=== PATIENT | female | born 1960 | race Caucasian/White ===

== ENCOUNTER 2019-07-16 02:13 | Inpatient (IN) | payer BC ==
[2019-07-16] VITALS (13 sets, daily range): BP systolic 119–169; BP diastolic 58–83
[~2019-07-16] VITALS: Ht 154.9 cm; Wt 88.6 kg
[2019-07-16] MEDS ORDERED: ONDANSETRON PF 4 MG/2 ML VIAL. IVP PRN (02:30)
[2019-07-16] MEDS ORDERED: IV NORMAL SALINE 1000ML BAG 1,000 ML IV SCH ×2 (02:30→05:13)
--- NOTE | 2019-07-16 02:37 | NUR ---
called dr belle at [phone] to inform him of pt arrival and her condition, was hung up on before i could tell him her condition but he stated he would "look into it". attempted to call him again at [phone] and he did not answer.
--- NOTE | 2019-07-16 03:07 | PDOC2 ---
CONSULT Date of Consult Date of Consult DATE: 07/16/19 TIME: 02:59 Reason for Consult Reason for Consult: incarcerated ventral incisional hernia Referring Physician Referring Physician: Dr Garcia Identification/Chief Complaint Chief Complaint abdominal pain Source Source: Chart review, Patient History of Present Illness Reason for Visit: Ms Last is a 58 yo obese female with hx of intermittent abdominal pain. Last noc this occurred with increased intensity. She was seen in the [facility] ED where CT showed incarcerated transverse colon. Past Medical History Cardiovascular: HTN Pulmonary: No pertinent hx Psych: Anxiety Renal/: No pertinent hx Past Surgical History Past Surgical History: , Hysterectomy Family History Family History: No Significant Social History No ALCOHOL: none Drugs: None Current Medications Current Medications Current Medications Sodium Chloride 1,000 ml @ 100 mls/hr Q10H IV ; Start 07/16/19 at 02:30 Ondansetron HCl (Zofran) 4 mg PRN Q4HRS PRN IVP NAUSEA/VOMITING 1ST CHOICE; Start 07/16/19 at 02:30 Fentanyl Citrate (Fentanyl 2ml Vial) 50 mcg PRN Q3HRS PRN IVP SEVERE PAIN 7-10; Start 07/16/19 at 02:30 Piperacillin Sod/ Tazobactam Sod 3.375 gm/Sodium Chloride 50 ml @ 100 mls/hr 1X ONCE IV ; Start 07/16/19 at 03:30; Stop 07/16/19 at 03:59 Allergies Allergies: Coded Allergies: peanut (Verified Allergy, Severe, 07/16/19) Estrogens (Verified Allergy, Intermediate, 07/16/19) ROS Gastrointestinal: Yes Nausea, Yes Abdominal Pain Physical Exam General: Alert, No acute distress HEENT: Atraumatic Lungs: Normal air movement Heart: Regular rate Abdomen: Soft, Other (fullness just below the umbilicus that is not reducible) Extremities: No clubbing Skin: Other (warm, dry) Neuro: Normal speech Psych/Mental Status: Mental status NL Labs Labs labs from ED are reviewed WBC 5.8, 'lytes WNL Images Images CT abdomen/pelvis done in the [facility] ED is reviewed Assessment/Plan Assessment/Plan incarcerated ventral incisional hernia containing colon obesity] HPT recommend repair explained risks including but not limited to bleeding, infection, recurrence, possible bowel resection, possible stoma she understands and will proceed Thanks for consult LAURA RAINES MD Jul 16, 2019 03:07
[2019-07-16] MEDS ORDERED: PIPERACILLIN/TAZOBACTAM 3.375 GM in IV NORMAL SALINE 50ML 50 ML IV ONE (03:30)
[2019-07-16] MEDS ORDERED: IV RINGERS,LACTATED 1000ML 1,000 ML IV SCH (03:33)
[2019-07-16] MEDS ORDERED: ONDANSETRON PF 4 MG/2 ML VIAL. IV PRN (03:45)
[2019-07-16] MEDS ORDERED: fentaNYL PF VIAL 100 MCG/2 ML VIAL IV PRN ×2 (03:45)
[2019-07-16] MEDS ORDERED: MORPHINE SULFATE 2 MG/ML VIAL. IV PRN (03:45)
[2019-07-16] MEDS ORDERED: PROCHLORPERAZINE 10 MG/2 ML VIAL. IV PRN (03:45)
[2019-07-16] MEDS ORDERED: HYDROmorphone 2 MG/ML VIAL IV PRN ×2 (03:45→05:15)
[2019-07-16] MEDS ORDERED: BUPIVACAINE-EPI 0.5%-1:200000 MPF 30 ML VIAL. ONE (03:50)
[2019-07-16] MEDS ORDERED: SEVOFLURANE 31 TO 60 MINUTES. IH ONE (03:52)
[2019-07-16] MEDS ORDERED: PROPOFOL 20 ML IV ONE (03:52)
[2019-07-16] MEDS ORDERED: LIDOCAINE 2% PF 5 ML VIAL. ONE (03:52)
[2019-07-16] MEDS ORDERED: DEXAMETHASONE SOD PHOS 4 MG/ML VIAL ONE (03:52)
[2019-07-16] MEDS ORDERED: ONDANSETRON PF 4 MG/2 ML VIAL. ONE (03:52)
[2019-07-16] MEDS ORDERED: NEOSTIGMINE METHYLSULFATE 5 MG/5 ML SYRINGE. ONE (03:53)
[2019-07-16] MEDS ORDERED: GLYCOPYRROLATE 1 MG/5 ML VIAL. ONE (03:53)
[2019-07-16] MEDS ORDERED: ROCURONIUM 50 MG/5 ML VIAL. ONE (03:53)
[2019-07-16] MEDS ORDERED: SUCCINYLCHOLINE 200 MG/10 ML VIAL. ONE (03:53)
[2019-07-16] MEDS ORDERED: fentaNYL PF VIAL 100 MCG/2 ML VIAL ONE ×2 (03:54→05:21)
[2019-07-16 04:16] LABS: BASO # 0.1 x10^3/uL (0.0-0.2); BASO % 1 % (0-3); EOS # 0.2 x10^3/uL (0.0-0.7); EOS % 3 % (0-3); HEMATOCRIT 39.6 % (36.0-47.0); HEMOGLOBIN 12.9 g/dL (12.0-15.5); LYMPH # 1.6 x10^3/uL (1.0-4.8); LYMPH % 20 % (24-48); MEAN CORPUSCULAR HEMOGLOBIN 29 pg (25-35); MEAN CORPUSCULAR HGB CONC 33 g/dL (31-37); MEAN CORPUSCULAR VOLUME 87 fL (79-100); MONO # 0.6 x10^3/uL (0.0-1.1); MONO % 7 % (0-9); NEUT # 5.6 x10^3/uL (1.8-7.7); NEUT % 70 % (31-73); PLATELET COUNT 273 x10^3/uL (140-400); RED BLOOD COUNT 4.53 x10^6/uL (3.50-5.40); RED CELL DISTRIBUTION WIDTH 14.4 % (11.5-14.5); WHITE BLOOD COUNT 8.1 x10^3/uL (4.0-11.0)
[2019-07-16] MEDS ORDERED: MIDAZOLAM HCL/PF 2 MG/2 ML VIAL. ONE ×2 (04:19→06:10)
[2019-07-16] MEDS ORDERED: ceFAZolin SODIUM IV Push 1 GM VIAL. IVP ONE (04:25)
[2019-07-16 04:32] LABS: ALBUMIN 3.1 g/dL (3.4-5.0); ALBUMIN/GLOBULIN RATIO 1.1 (1.0-1.7); CALCIUM 8.4 mg/dL (8.5-10.1); CREATININE 0.8 mg/dL (0.6-1.0); GFR 73.2; POTASSIUM 3.9 mmol/L (3.5-5.1); TOTAL BILIRUBIN 0.3 mg/dL (0.2-1.0)
[2019-07-16] MEDS ORDERED: SEVOFLURANE 61 TO 120 MINUTES. IH ONE (04:47)
--- NOTE | 2019-07-16 04:52 | NUR ---
pt left for surgery at [id number]
[2019-07-16] MEDS ORDERED: NALOXONE 0.4 MG/ML VIAL. IV PRN (05:15)
[2019-07-16] MEDS ORDERED: 0.9 % SODIUM CHLORIDE 10 ML DISP.SYRIN. IV PRN (05:15)
[2019-07-16] MEDS ORDERED: oxyCODONE/APAP 5/325 1 TAB TABLET PO PRN ×2 (05:15)
--- NOTE | 2019-07-16 05:20 | PDOC ---
BRIEF OPERATIVE NOTE Date: Jul 16, 2019 Pre-Op Diagnosis incarcerated ventral incisional hernia Post-Op Diagnosis same Procedure Performed primary repair Surgeon Andry Furnace Charging Machine Operator Carmen OCONNOR Anesthesia Type: General Blood Loss 10cc IV Fluid 500cc Urine Output 300cc Specimens Obtained hernia sack Findings single defect containing omentum Complications none LAURA RAINES MD Jul 16, 2019 05:20
[2019-07-16] MEDS ORDERED: MORPHINE SULFATE 2 MG/ML VIAL. ONE (05:51)
--- NOTE | 2019-07-16 06:10 | OP ---
DATE OF SURGERY: 07/16/2019 PREOPERATIVE DIAGNOSIS: Incarcerated ventral incisional hernia. POSTOPERATIVE DIAGNOSIS: Incarcerated ventral incisional hernia. PROCEDURE: Primary repair. SURGEON: Maury Raines MD SCRAPER OPERATOR: ANASTASIA Sam ANESTHESIA: General endotracheal. BLOOD LOSS: 10 mL. INTRAVENOUS FLUIDS: 500 mL. URINE OUTPUT: 300 mL. INDICATIONS: The patient is a 58-year-old with a ventral incisional hernia containing colon by CT scan. She is brought for repair. OPERATIVE FINDINGS: Hernia sac-contained incarcerated omentum having reduced the bowel contents after induction. OPERATIVE REPORT: The patient brought to the operating suite, given general endotracheal anesthetic, and the abdomen prepped and draped in usual sterile fashion. Old low midline incisional scar was excised and dissection carried down to the anterior sheath. The large hernia sac was exposed circumferentially and carefully opened. Omental contents were freed and reduced into the abdomen. Digital sweep of the abdominal wall revealed no other areas of weakness. The defect was closed in transverse fashion with a running stitch of #1 looped PDS after a correct sponge count had been obtained. A second row of 0 Vicryl was placed to reinforce the repair. Good hemostasis was present. A 19-Slovak round Mitch drain left in the subcutaneous space for postoperative drainage, secured to the skin with a silk stitch. Second sponge count was correct. The skin was closed with a subcuticular 4-0 Monocryl. Steri-Strips and sterile dressing applied. The patient awakened from her anesthetic and taken to the recovery room in satisfactory condition. MAURY RAINES MD DR: FRANKLYN/ursula JOB#: [id number] / [id number] NELA Hammond MD
[2019-07-16] MEDS ORDERED: MIDAZOLAM HCL/PF 2 MG/2 ML VIAL. IV PRN (06:15)
[2019-07-16] MEDS: ONDANSETRON PF 4 MG/2 ML VIAL. IVP PRN (08:30)
[2019-07-16] MEDS: fentaNYL PF VIAL 100 MCG/2 ML VIAL IVP PRN (08:33)
[2019-07-16] MEDS: POTASSIUM CL 20MEQ-0.45% NACL 1,000 ML IV SCH ×2 (08:33→16:00)
[2019-07-16] MEDS: DOCUSATE SODIUM 100 MG CAPSULE. PO SCH ×2 (09:00→21:49)
--- NOTE | 2019-07-16 10:21 | NUR ---
SW following. Discussed with RN, pt from home alone. Pt had emergency surgery this morning at 0400. RN has not seen pt up yet. Pt has family and friends as supports. RN advised no SW needs at this time. SW will continue to follow.
[2019-07-16] MEDS ORDERED: LORazepam 0.5 MG TABLET PO PRN (11:00)
--- NOTE | 2019-07-16 11:39 | PDOC ---
SURGICAL PROGRESS NOTE Subjective improved, earlier panic attacks pain managed no n/v Vital Signs Vital Signs Date Time Temp Pulse Resp B/P (MAP) Pulse Ox O2 Delivery O2 Flow Rate FiO2 07/16/19 11:00 98.2 91 18 155/83 (107) 92 Room Air 98.2 07/16/19 08:33 4.0 I&O Intake and Output 07/16/19 07:00 Intake Total 850 ml Output Total 865 ml Balance -15 ml Intake Oral 0 ml IV Total 850 ml Output Urine Total 850 ml Drainage Total 5 ml Estimated Blood Loss 10 ml # Voids 1 General: Cooperative, No acute distress Abdomen: Soft Labs Laboratory Tests Test 07/16/19 03:00 07/16/19 03:50 Sodium Level 141 mmol/L (136-145) Potassium Level 3.9 mmol/L (3.5-5.1) Chloride Level 108 mmol/L (98-107) Carbon Dioxide Level 24 mmol/L (21-32) Anion Gap 9 (6-14) Blood Urea Nitrogen 14 mg/dL (7-20) Creatinine 0.8 mg/dL (0.6-1.0) Estimated GFR (Cockcroft-Gault) 73.2 BUN/Creatinine Ratio 18 (6-20) Glucose Level 115 mg/dL (70-99) Lactic Acid Level 0.8 mmol/L (0.4-2.0) Calcium Level 8.4 mg/dL (8.5-10.1) Total Bilirubin 0.3 mg/dL (0.2-1.0) Aspartate Amino Transf (AST/SGOT) 13 U/L (15-37) Alanine Aminotransferase (ALT/SGPT) 10 U/L (14-59) Alkaline Phosphatase 74 U/L (46-116) Total Protein 6.0 g/dL (6.4-8.2) Albumin 3.1 g/dL (3.4-5.0) Albumin/Globulin Ratio 1.1 (1.0-1.7) White Blood Count 8.1 x10^3/uL (4.0-11.0) Red Blood Count 4.53 x10^6/uL (3.50-5.40) Hemoglobin 12.9 g/dL (12.0-15.5) Hematocrit 39.6 % (36.0-47.0) Mean Corpuscular Volume 87 fL (79-100) Mean Corpuscular Hemoglobin 29 pg (25-35) Mean Corpuscular Hemoglobin Concent 33 g/dL (31-37) Red Cell Distribution Width 14.4 % (11.5-14.5) Platelet Count 273 x10^3/uL (140-400) Neutrophils (%) (Auto) 70 % (31-73) Lymphocytes (%) (Auto) 20 % (24-48) Monocytes (%) (Auto) 7 % (0-9) Eosinophils (%) (Auto) 3 % (0-3) Basophils (%) (Auto) 1 % (0-3) Neutrophils # (Auto) 5.6 x10^3/uL (1.8-7.7) Lymphocytes # (Auto) 1.6 x10^3/uL (1.0-4.8) Monocytes # (Auto) 0.6 x10^3/uL (0.0-1.1) Eosinophils # (Auto) 0.2 x10^3/uL (0.0-0.7) Basophils # (Auto) 0.1 x10^3/uL (0.0-0.2) Laboratory Tests Test 07/16/19 03:00 07/16/19 03:50 Sodium Level 141 mmol/L (136-145) Potassium Level 3.9 mmol/L (3.5-5.1) Chloride Level 108 mmol/L (98-107) Carbon Dioxide Level 24 mmol/L (21-32) Anion Gap 9 (6-14) Blood Urea Nitrogen 14 mg/dL (7-20) Creatinine 0.8 mg/dL (0.6-1.0) Estimated GFR (Cockcroft-Gault) 73.2 BUN/Creatinine Ratio 18 (6-20) Glucose Level 115 mg/dL (70-99) Lactic Acid Level 0.8 mmol/L (0.4-2.0) Calcium Level 8.4 mg/dL (8.5-10.1) Total Bilirubin 0.3 mg/dL (0.2-1.0) Aspartate Amino Transf (AST/SGOT) 13 U/L (15-37) Alanine Aminotransferase (ALT/SGPT) 10 U/L (14-59) Alkaline Phosphatase 74 U/L (46-116) Total Protein 6.0 g/dL (6.4-8.2) Albumin 3.1 g/dL (3.4-5.0) Albumin/Globulin Ratio 1.1 (1.0-1.7) White Blood Count 8.1 x10^3/uL (4.0-11.0) Red Blood Count 4.53 x10^6/uL (3.50-5.40) Hemoglobin 12.9 g/dL (12.0-15.5) Hematocrit 39.6 % (36.0-47.0) Mean Corpuscular Volume 87 fL (79-100) Mean Corpuscular Hemoglobin 29 pg (25-35) Mean Corpuscular Hemoglobin Concent 33 g/dL (31-37) Red Cell Distribution Width 14.4 % (11.5-14.5) Platelet Count 273 x10^3/uL (140-400) Neutrophils (%) (Auto) 70 % (31-73) Lymphocytes (%) (Auto) 20 % (24-48) Monocytes (%) (Auto) 7 % (0-9) Eosinophils (%) (Auto) 3 % (0-3) Basophils (%) (Auto) 1 % (0-3) Neutrophils # (Auto) 5.6 x10^3/uL (1.8-7.7) Lymphocytes # (Auto) 1.6 x10^3/uL (1.0-4.8) Monocytes # (Auto) 0.6 x10^3/uL (0.0-1.1) Eosinophils # (Auto) 0.2 x10^3/uL (0.0-0.7) Basophils # (Auto) 0.1 x10^3/uL (0.0-0.2) Problem List VIH await bowel function medical management for anxiety SKYLA SHARMA APRN Jul 16, 2019 11:39
--- NOTE | 2019-07-16 13:27 | HP ---
ADMIT DATE: 07/16/2019 HISTORY OF PRESENT ILLNESS: The patient is a 58-year-old female patient who presented to the Emergency Room of [facility] with complaint of abdominal pain and cramping that started yesterday. She indicates the pain is around the umbilical region. She rates the pain as 7/10. She does have some nausea, but no vomiting. She also indicated that she has had no episode of loose bowel movement. Denied any fever. Her pain is worse with movement and nothing has improved her pain. She was extensively investigated in the Emergency Room. Her lab work was unremarkable; however, CT scan of the abdomen and pelvis showed there are inflammatory changes that are seen about the herniated segment of the transverse colon without associated pneumatosis, ascites or free intraperitoneal gas. This can be correlated with examination for possible incarceration. No bowel obstruction, borderline hepatomegaly and a decision was made to transfer her to consult the surgical team for incarcerated ventral incisional hernia. PAST MEDICAL HISTORY: Significant for anxiety and hypertension. She did have esophagogastroduodenoscopy and dilatation of her esophagus before. ALLERGIES: SHE IS ALLERGIC TO ESTROGEN AND PEANUTS. MEDICATIONS: She is currently on following medications: She is on cetirizine 10 mg once a day, albuterol sulfate, ProAir 1 puff every 4-6 hours, lisinopril 20 mg once a day, citalopram hydrobromide 20 mg once a day, and Flonase 2 sprays to each nostril once a day. REVIEW OF SYSTEMS: As per history of present illness. FAMILY HISTORY: Positive for heart disease. SOCIAL HISTORY: She is and lives with her . She does not smoke, drink alcohol or use any recreational drugs. She is retired from the [employer] in [place]. Apparently, she has had also and hysterectomy. PHYSICAL EXAMINATION: GENERAL: On arrival to the Emergency Room, the patient looked well and was clearly in no apparent respiratory distress. No pallor, jaundice, cyanosis or thyromegaly. No jugular venous distention. No lower limb edema. VITAL SIGNS: Her heart rate was 72, blood pressure was 159/72, temperature was 98.4, respiratory rate was 16, and oxygen saturation was 98%. HEAD, EYES, EARS, NOSE AND THROAT: Showed normocephalic, atraumatic. NECK: Supple. HEART: Showed normal first and second heart sounds. No gallop or murmur. CHEST: Clear to auscultation. No crepitation or rhonchi. ABDOMEN: Distended with tenderness mostly around the umbilical area. NEUROLOGIC: She was awake, alert, responding appropriately. All cranial nerves intact. EXTREMITIES: She moves extremities without difficulty. She ambulates without assistance or assistive devices. LABORATORY DATA: Her lab work showed a white cell count 5800, hemoglobin 13, hematocrit 41, MCV was 88 and platelet count of 300,000. Her D-dimer was slightly elevated at 0.62. Her chemistry showed serum sodium of 142, potassium 4, chloride 106, bicarbonate 27, anion gap of 9, BUN 18, creatinine 0.9, estimated GFR was 64 mL per minute. Her glucose 116, calcium was 8.6. Total bilirubin, AST, ALT, alkaline phosphatase were normal. Total protein 6.7, albumin 3.5. TSH was normal at 0.771. Urinalysis was unremarkable and her influenza A and B were negative. ASSESSMENT AND PLAN: The patient was admitted to [facility]. We will obviously consult the surgical team. She was kept n.p.o., started on IV fluid, IV pain medication and antiemetic, and we will obviously repeat her lab work including lactic acid and decide the further management accordingly. NELA MCINTYRE MD DR: AIRAM/ursula JOB#: [id number] / [id number]
[2019-07-16] MEDS ORDERED: clonazePAM 0.5 MG TABLET PO PRN (15:45)
--- NOTE | 2019-07-16 16:08 | PDOC1 ---
History & Psych Evaluation Date of Admission: Date of Admission DATE: 07/16/19 TIME: 15:52 Identification: Identification She is a 58-year-old female with prior history of generalized anxiety disorder Chief Complaint: Chief Complaint Anxiety with panic attacks. History of Present Illness: HPI: She is a pleasant female with prior history of generalized anxiety disorder and panic attacks admitted with incarcerated hernia S/P surgical intervention, seen for initial psychiatric evaluation. Reportedly, she has been having panic attacks since morning. Since morning, she had 3 panic attacks. She is cooperative and interactive a phone conversation. States, she has history of generalized anxiety disorder with panic attacks started 20 years ago when she got her hysterectomy done. States, she gets nervous about several things in her life, mostly things in general, and in severe situations gets panic attack. Panic attack is with typical symptomatology including difficulty catching up her breath, extreme nervousness, fear, and psychosomatic symptoms. States, she has been prescribed citalopram 20 mg which is reportedly helpful. Prior to admission, states her anxiety was not fully under control and she was having subtle panic -like situations. However, she states that, her panic attacks are related to her current medical situation and being in the hospital. States, she wants to leave the hospital. Aside from that, she denies history of overt depression, suicidal or homicidal thoughts, history of psychosis, hallucinations, bipolar mood disorder, or excessive alcohol abuse or illicit substance use. No evidence of renaldo, hypomania, or psychosis. Past Psychiatric History: She denies past psychiatric history of psychiatric inpatient admission, suicidality, or rehabilitation. Past Medical History: For details please see medical chart. Family History: She denies family history of psychiatric illness, or suicidality in family. Social History: Social History: She lives by herself, and once, has 3 grownup children. She works at [employer]. Denies history of legal ramifications. Substance use history as mentioned above. Current Medications: Current Medications Current Medications Sodium Chloride 1,000 ml @ 100 mls/hr Q10H IV Last administered on 07/16/19at 03:08; Start 07/16/19 at 02:30; Stop 07/16/19 at 05:21; Status DC Ondansetron HCl (Zofran) 4 mg PRN Q4HRS PRN IVP NAUSEA/VOMITING 1ST CHOICE; Start 07/16/19 at 02:30; Stop 07/16/19 at 05:21; Status DC Fentanyl Citrate (Fentanyl 2ml Vial) 50 mcg PRN Q3HRS PRN IVP SEVERE PAIN 7-10 Last administered on 07/16/19at 08:33; Start 07/16/19 at 02:30 Piperacillin Sod/ Tazobactam Sod 3.375 gm/Sodium Chloride 50 ml @ 100 mls/hr 1X ONCE IV Last administered on 07/16/19at 04:35; Start 07/16/19 at 03:30; Stop 07/16/19 at 03:59; Status DC Ondansetron HCl (Zofran) 4 mg PRN Q6HRS PRN IV NAUSEA/VOMITING; Start 07/16/19 at 03:45; Stop 07/17/19 at 03:44 Fentanyl Citrate (Fentanyl 2ml Vial) 25 mcg PRN Q5MIN PRN IV MILD PAIN 1-3; Start 07/16/19 at 03:45; Stop 07/17/19 at 03:44 Fentanyl Citrate (Fentanyl 2ml Vial) 50 mcg PRN Q5MIN PRN IV MODERATE TO SEVERE PAIN; Start 07/16/19 at 03:45; Stop 07/17/19 at 03:44 Morphine Sulfate (Morphine Sulfate) 1 mg PRN Q10MIN PRN IV SEVERE PAIN 7-10; Start 07/16/19 at 03:45; Stop 07/17/19 at 03:44 Ringer's Solution 1,000 ml @ 30 mls/hr Q24H IV ; Start 07/16/19 at 03:33; Stop 07/16/19 at 15:32; Status DC Hydromorphone HCl (Dilaudid) 0.5 mg PRN Q10MIN PRN IV SEV PAIN, Second choice; Start 07/16/19 at 03:45; Stop 07/17/19 at 03:44 Prochlorperazine Edisylate (Compazine) 5 mg PACU PRN PRN IV NAUSEA, MRX1 Last administered on 07/16/19at 06:30; Start 07/16/19 at 03:45; Stop 07/17/19 at 03:44 Bupivacaine HCl/ Epinephrine Bitart (Sensorcain-Epi 0.5%-1:750561 Mpf) 30 ml STK-MED ONCE .ROUTE Last administered on 07/16/19at 04:38; Start 07/16/19 at 03:50; Stop 07/16/19 at 03:50; Status DC Ondansetron HCl (Zofran) 4 mg STK-MED ONCE .ROUTE ; Start 07/16/19 at 03:52; Stop 07/16/19 at 03:53; Status DC Propofol 20 ml @ As Directed STK-MED ONCE IV ; Start 07/16/19 at 03:52; Stop 07/16/19 at 03:53; Status DC Lidocaine HCl (Lidocaine Pf 2% Vial) 5 ml STK-MED ONCE .ROUTE ; Start 07/16/19 at 03:52; Stop 07/16/19 at 03:53; Status DC Dexamethasone Sodium Phosphate (Decadron) 4 mg STK-MED ONCE .ROUTE ; Start 07/16/19 at 03:52; Stop 07/16/19 at 03:53; Status DC Sevoflurane (Ultane) 30 ml STK-MED ONCE IH ; Start 07/16/19 at 03:52; Stop 07/16/19 at 03:53; Status DC Succinylcholine Chloride (Anectine) 200 mg STK-MED ONCE .ROUTE ; Start 07/16/19 at 03:53; Stop 07/16/19 at 03:53; Status DC Glycopyrrolate (Robinul) 1 mg STK-MED ONCE .ROUTE ; Start 07/16/19 at 03:53; Stop 07/16/19 at 03:53; Status DC Neostigmine Yancey (Neostigmine Methylsulfate) 5 mg STK-MED ONCE .ROUTE ; Start 07/16/19 at 03:53; Stop 07/16/19 at 03:53; Status DC Rocuronium Yancey (Zemuron) 50 mg STK-MED ONCE .ROUTE ; Start 07/16/19 at 03:53; Stop 07/16/19 at 03:54; Status DC Fentanyl Citrate (Fentanyl 2ml Vial) 100 mcg STK-MED ONCE .ROUTE ; Start 07/16/19 at 03:54; Stop 07/16/19 at 03:54; Status DC Midazolam HCl (Versed) 2 mg STK-MED ONCE .ROUTE ; Start 07/16/19 at 04:19; Stop 07/16/19 at 04:19; Status DC Cefazolin Sodium (Ancef) 1 gm STK-MED ONCE IVP ; Start 07/16/19 at 04:25; Stop 07/16/19 at 04:25; Status DC Sevoflurane (Ultane) 60 ml STK-MED ONCE IH ; Start 07/16/19 at 04:47; Stop 07/16/19 at 04:48; Status DC Enoxaparin Sodium (Lovenox 40mg Syringe) 40 mg Q24H SQ ; Start 07/16/19 at 21:00 Sodium Chloride (Normal Saline Flush) 3 ml QSHIFT PRN IV AFTER MEDS AND BLOOD DRAWS; Start 07/16/19 at 05:15 Potassium Chloride/Sodium Chloride 1,000 ml @ 100 mls/hr Q10H IV Last administered on 07/16/19at 08:33; Start 07/16/19 at 06:00 Oxycodone/ Acetaminophen (Percocet 5/325) 1 tab PRN Q4HRS PRN PO MILD PAIN, 1ST CHOICE; Start 07/16/19 at 05:15 Oxycodone/ Acetaminophen (Percocet 5/325) 2 tab PRN Q4HRS PRN PO MODERATE PAIN, SEVERE PAIN; Start 07/16/19 at 05:15 Naloxone HCl (Narcan) 0.4 mg PRN Q2MIN PRN IV SEE INSTRUCTIONS; Start 07/16/19 at 05:15 Sodium Chloride 1,000 ml @ 25 mls/hr Q24H IV ; Start 07/16/19 at 05:13; Stop 07/16/19 at 05:20; Status DC Hydromorphone HCl (Dilaudid) 1 mg PRN Q4HRS PRN IV SEVERE PAIN 7-10; Start 07/16/19 at 05:15 Docusate Sodium (Colace) 100 mg BID PO ; Start 07/16/19 at 09:00 Ondansetron HCl (Zofran) 4 mg PRN Q6HRS PRN IVP NAUESA, 1ST CHOICE Last administered on 07/16/19at 08:30; Start 07/16/19 at 05:15 Fentanyl Citrate (Fentanyl 2ml Vial) 100 mcg STK-MED ONCE .ROUTE ; Start 07/16/19 at 05:21; Stop 07/16/19 at 05:21; Status DC Morphine Sulfate (Morphine Sulfate) 2 mg STK-MED ONCE .ROUTE ; Start 07/16/19 at 05:51; Stop 07/16/19 at 05:51; Status DC Midazolam HCl (Versed) 2 mg STK-MED ONCE .ROUTE ; Start 07/16/19 at 06:10; Stop 07/16/19 at 06:10; Status DC Midazolam HCl (Versed) 1 mg PRN Q30MIN PRN IV ANXIETY Last administered on 07/16/19at 06:15; Start 07/16/19 at 06:15; Stop 07/16/19 at 18:15 Lorazepam (Ativan) 0.5 mg PRN Q6HRS PRN PO ANXIETY / AGITATION Last administered on 07/16/19at 12:17; Start 07/16/19 at 11:00 Allergies: Allergies: Coded Allergies: peanut (Verified Allergy, Severe, 07/16/19) Estrogens (Verified Allergy, Intermediate, 07/16/19) Mental Status Examination: Mental Status Examination She is a pleasant female, appears her stated age, dressed in hospital gown, fairly nourished and fairly groomed. She is cooperative and interactive. She is fully alert and oriented. Speech is with regular rate and rhythm, normal tone and volume. Thought process is linear, coherent, and goal-directed. Denies suicidal or homicidal thoughts intent or plan. Denies auditory or visual hallucinations. No abnormal delusions reported. Mood is slightly anxious, affect is euthymic. Insight is good, judgment is good, and attention span is fair. Memory is intact. ROS: Medical review of system is positive for nausea and slight abdominal pain. Psychiatric review of system is positive for anxiety and panic attacks. Physical Exam: Refer to Physician's note. STEREOTYPER HELPER: No focal deficit MSK: No EPS, TDK, or abnormal involuntary movements Vitals: Vitals Vital Signs Date Time Temp Pulse Resp B/P (MAP) Pulse Ox O2 Delivery O2 Flow Rate FiO2 07/16/19 15:00 97.9 95 18 146/76 (99) 94 Room Air 97.9 07/16/19 08:33 4.0 Labs: Labs Laboratory Tests Test 07/16/19 03:00 07/16/19 03:50 Sodium Level 141 mmol/L (136-145) Potassium Level 3.9 mmol/L (3.5-5.1) Chloride Level 108 mmol/L (98-107) Carbon Dioxide Level 24 mmol/L (21-32) Anion Gap 9 (6-14) Blood Urea Nitrogen 14 mg/dL (7-20) Creatinine 0.8 mg/dL (0.6-1.0) Estimated GFR (Cockcroft-Gault) 73.2 BUN/Creatinine Ratio 18 (6-20) Glucose Level 115 mg/dL (70-99) Lactic Acid Level 0.8 mmol/L (0.4-2.0) Calcium Level 8.4 mg/dL (8.5-10.1) Total Bilirubin 0.3 mg/dL (0.2-1.0) Aspartate Amino Transf (AST/SGOT) 13 U/L (15-37) Alanine Aminotransferase (ALT/SGPT) 10 U/L (14-59) Alkaline Phosphatase 74 U/L (46-116) Total Protein 6.0 g/dL (6.4-8.2) Albumin 3.1 g/dL (3.4-5.0) Albumin/Globulin Ratio 1.1 (1.0-1.7) White Blood Count 8.1 x10^3/uL (4.0-11.0) Red Blood Count 4.53 x10^6/uL (3.50-5.40) Hemoglobin 12.9 g/dL (12.0-15.5) Hematocrit 39.6 % (36.0-47.0) Mean Corpuscular Volume 87 fL (79-100) Mean Corpuscular Hemoglobin 29 pg (25-35) Mean Corpuscular Hemoglobin Concent 33 g/dL (31-37) Red Cell Distribution Width 14.4 % (11.5-14.5) Platelet Count 273 x10^3/uL (140-400) Neutrophils (%) (Auto) 70 % (31-73) Lymphocytes (%) (Auto) 20 % (24-48) Monocytes (%) (Auto) 7 % (0-9) Eosinophils (%) (Auto) 3 % (0-3) Basophils (%) (Auto) 1 % (0-3) Neutrophils # (Auto) 5.6 x10^3/uL (1.8-7.7) Lymphocytes # (Auto) 1.6 x10^3/uL (1.0-4.8) Monocytes # (Auto) 0.6 x10^3/uL (0.0-1.1) Eosinophils # (Auto) 0.2 x10^3/uL (0.0-0.7) Basophils # (Auto) 0.1 x10^3/uL (0.0-0.2) Laboratory Tests Test 07/16/19 03:00 07/16/19 03:50 Sodium Level 141 mmol/L (136-145) Potassium Level 3.9 mmol/L (3.5-5.1) Chloride Level 108 mmol/L (98-107) Carbon Dioxide Level 24 mmol/L (21-32) Anion Gap 9 (6-14) Blood Urea Nitrogen 14 mg/dL (7-20) Creatinine 0.8 mg/dL (0.6-1.0) Estimated GFR (Cockcroft-Gault) 73.2 BUN/Creatinine Ratio 18 (6-20) Glucose Level 115 mg/dL (70-99) Lactic Acid Level 0.8 mmol/L (0.4-2.0) Calcium Level 8.4 mg/dL (8.5-10.1) Total Bilirubin 0.3 mg/dL (0.2-1.0) Aspartate Amino Transf (AST/SGOT) 13 U/L (15-37) Alanine Aminotransferase (ALT/SGPT) 10 U/L (14-59) Alkaline Phosphatase 74 U/L (46-116) Total Protein 6.0 g/dL (6.4-8.2) Albumin 3.1 g/dL (3.4-5.0) Albumin/Globulin Ratio 1.1 (1.0-1.7) White Blood Count 8.1 x10^3/uL (4.0-11.0) Red Blood Count 4.53 x10^6/uL (3.50-5.40) Hemoglobin 12.9 g/dL (12.0-15.5) Hematocrit 39.6 % (36.0-47.0) Mean Corpuscular Volume 87 fL (79-100) Mean Corpuscular Hemoglobin 29 pg (25-35) Mean Corpuscular Hemoglobin Concent 33 g/dL (31-37) Red Cell Distribution Width 14.4 % (11.5-14.5) Platelet Count 273 x10^3/uL (140-400) Neutrophils (%) (Auto) 70 % (31-73) Lymphocytes (%) (Auto) 20 % (24-48) Monocytes (%) (Auto) 7 % (0-9) Eosinophils (%) (Auto) 3 % (0-3) Basophils (%) (Auto) 1 % (0-3) Neutrophils # (Auto) 5.6 x10^3/uL (1.8-7.7) Lymphocytes # (Auto) 1.6 x10^3/uL (1.0-4.8) Monocytes # (Auto) 0.6 x10^3/uL (0.0-1.1) Eosinophils # (Auto) 0.2 x10^3/uL (0.0-0.7) Basophils # (Auto) 0.1 x10^3/uL (0.0-0.2) Impressions: Impressons: DSM-V diagnoses: 1generalized anxiety disorder 2panic attacks 3incarcerated abdominal hernia S/P surgical intervention. Assessment/Plan: Assessment/Plan She is a pleasant female struggling with panic attacks in context of prior generalized anxiety disorder with panic attacks. Likely precipitation of her anxiety and panic attacks is related to her current hospitalization and surgical intervention. She is in agreement to start Klonopin temporarily to abort panic attacks and continue her citalopram (outpatient medication). She is also educated to use deep breathing exercises to abort panic attacks. Plan: Restart citalopram 20 mg daily for anxiety and panic attacks. Klonopin 0.5 mg twice a day scheduled for sustained stability to avoid panic attacks. DC Ativan when necessary. Psychoeducation provided. Supportive psychotherapy provided. Risks, benefits, alternatives are discussed. She is in agreement with plan and expresses understanding. Adverse drug reactions including but not limited to insomnia, excessive sedation, weight gain/loss, suicidality, sexual dysfunction, are discussed. REBEL SAHNI MD Jul 16, 2019 16:08
[2019-07-16] MEDS: ENOXAPARIN 40 MG/0.4 ML SYRINGE. SQ SCH (21:50)
[2019-07-17] MEDS: POTASSIUM CL 20MEQ-0.45% NACL 1,000 ML IV SCH ×3 (02:51→20:46)
[2019-07-17 03:00] VITALS: BP 127/73
[2019-07-17 07:41] VITALS: BP 141/67
[2019-07-17] MEDS: CITALOPRAM 20 MG TABLET. PO SCH (07:56)
[2019-07-17] MEDS: DOCUSATE SODIUM 100 MG CAPSULE. PO SCH ×2 (07:56→20:41)
[2019-07-17] MEDS: fentaNYL PF VIAL 100 MCG/2 ML VIAL IVP PRN (07:57)
[2019-07-17] MEDS: ONDANSETRON PF 4 MG/2 ML VIAL. IVP PRN ×2 (08:24→14:42)
--- NOTE | 2019-07-17 09:23 | NUR ---
SW following. Discussed with RN. RN advised no SW needs and anticipates possible discharge home today with self care.
--- NOTE | 2019-07-17 09:29 | PN ---
DATE: 07/17/2019 SUBJECTIVE: The patient is resting, slightly propped up in bed, in no apparent respiratory distress. She apparently continued to be nauseous and vomited once this morning. Denied any abdominal pain, had not had any bowel movement or passed flatus according to her. PHYSICAL EXAMINATION: GENERAL: On examining her, she looked well and was clearly in no apparent respiratory distress. No pallor, jaundice, cyanosis or thyromegaly. No jugular venous distention. No lower limb edema. VITAL SIGNS: Her heart rate was 86, blood pressure was 141/67, temperature was 98, respiratory rate was 18 and oxygen saturation was 91% on room air. ABDOMEN: Soft, nontender. No tenderness. No guarding or rigidity. No organomegaly. Bowel sounds are audible. Her intake over the last 24 hours was 850, output was 865. LABORATORY DATA: Her lab work showed her all within acceptable range. Her white cell count was 8100, hemoglobin 13, hematocrit 39, MCV 87, and platelet count 273,000. ASSESSMENT: Incarcerated ventral incisional hernia, status post primary repair. The patient continued to be somewhat nauseous and vomited once this morning. Other medical problems include hypertension and anxiety. PLAN: Continue with current medication for her anxiety and also DVT prophylaxis. Continue with IV fluid. Once she is tolerating her regular diet, she can be discharged home. NELA MCINTYRE MD DR: AIRAM/ursula JOB#: [id number] / [id number]
[2019-07-17 11:10] VITALS: BP 112/40
--- NOTE | 2019-07-17 12:20 | PN ---
PROGRESS NOTES Subjective Subjective She is a pleasant female with generalized anxiety disorder who was seen initially yesterday 07/16/2023 for psychiatric evaluation. Today, she is seen for routine follow-up. She was restarted on Klonopin 0.5 mg twice a day for panic attacks and breakthrough anxiety. Additionally, her outpatient citalopram 20 mg was started. With respect to anxiety and mood, she endorses substantial improvement. Anxiety is reported as 12/10 10 is worse. States, she slept really good last night. Complaining of nausea and threw up in the morning. States she is limited but anxious due to her nausea. Aside from that she denies overt depression, hallucinations, mood instability, violent intent, or nightmares. No evidence of psychosis or renaldo. Tolerating medications, denies adverse drug reaction. Objective Objective Vital Signs Date Time Temp Pulse Resp B/P (MAP) Pulse Ox O2 Delivery O2 Flow Rate FiO2 07/17/19 11:10 98.1 67 18 112/40 (64) 94 Room Air 98.1 07/16/19 08:33 4.0 Intake and Output 07/17/19 07:00 Intake Total 1480 ml Output Total 2100 ml Balance -620 ml Intake Oral 1480 ml Output Urine Total 2100 ml # Voids 3 Physical Exam Physical Exam Mental status examination: She is a pleasant female, appears her stated age, dressed in hospital gown, fairly nourished and fairly groomed. She is cooperative and interactive. She is fully alert and oriented. Speech is with regular rate and rhythm, normal tone and volume. Thought process is linear, coherent, and goal-directed. Denies suicidal or homicidal thoughts intent or plan. Denies auditory or visual hallucinations. No abnormal delusions reported. Mood is "pretty good", affect is euthymic. Insight is good, judgment is good, and attention span is fair. Memory is intact. Physical examination: BORDER MEASURER: No focal neurological deficit. Musculoskeletal: No EPS or abnormal involuntary movements. Diagnosis DIAGNOSIS 1generalized anxiety disorder 2panic attacks 3incarcerated abdominal hernia S/P surgical intervention Assessment Assessment She is a pleasant female with generalized anxiety disorder and panic attacks who was restarted on Klonopin 0.5 mg twice a day for sustained control of panic attacks, citalopram 20 mg which was her outpatient antianxiety medication. With respect to anxiety, she notes substantial improvement in anxiety. Presently, would recommend to continue medications as prescribed. Plan Plan of Care 1 reporting nausea, Klonopin helps in nausea. 2 continue Klonopin 0.5 mg twice a day for breakthrough anxiety and panic attacks. 3continue citalopram 20 mg daily for generalized anxiety disorder. 4psychoeducation provided. 5supportive psychotherapy provided. 6risk, benefits, alternatives of the treatment are discussed. She is in agreement with plan and expresses understanding. 7in case of discharge, continue citalopram 20 mg daily, a week supply of Klonopin 0.5 mg once daily for as needed for breakthrough anxiety. Please feel free to contact Dr. Carrera at [phone] with any concern. Comment Review of Relevant I have reviewed the following items jeff (where applicable) has been applied. Labs Laboratory Tests Test 07/16/19 03:00 07/16/19 03:50 Sodium Level 141 mmol/L (136-145) Potassium Level 3.9 mmol/L (3.5-5.1) Chloride Level 108 mmol/L (98-107) Carbon Dioxide Level 24 mmol/L (21-32) Anion Gap 9 (6-14) Blood Urea Nitrogen 14 mg/dL (7-20) Creatinine 0.8 mg/dL (0.6-1.0) Estimated GFR (Cockcroft-Gault) 73.2 BUN/Creatinine Ratio 18 (6-20) Glucose Level 115 mg/dL (70-99) Lactic Acid Level 0.8 mmol/L (0.4-2.0) Calcium Level 8.4 mg/dL (8.5-10.1) Total Bilirubin 0.3 mg/dL (0.2-1.0) Aspartate Amino Transf (AST/SGOT) 13 U/L (15-37) Alanine Aminotransferase (ALT/SGPT) 10 U/L (14-59) Alkaline Phosphatase 74 U/L (46-116) Total Protein 6.0 g/dL (6.4-8.2) Albumin 3.1 g/dL (3.4-5.0) Albumin/Globulin Ratio 1.1 (1.0-1.7) White Blood Count 8.1 x10^3/uL (4.0-11.0) Red Blood Count 4.53 x10^6/uL (3.50-5.40) Hemoglobin 12.9 g/dL (12.0-15.5) Hematocrit 39.6 % (36.0-47.0) Mean Corpuscular Volume 87 fL (79-100) Mean Corpuscular Hemoglobin 29 pg (25-35) Mean Corpuscular Hemoglobin Concent 33 g/dL (31-37) Red Cell Distribution Width 14.4 % (11.5-14.5) Platelet Count 273 x10^3/uL (140-400) Neutrophils (%) (Auto) 70 % (31-73) Lymphocytes (%) (Auto) 20 % (24-48) Monocytes (%) (Auto) 7 % (0-9) Eosinophils (%) (Auto) 3 % (0-3) Basophils (%) (Auto) 1 % (0-3) Neutrophils # (Auto) 5.6 x10^3/uL (1.8-7.7) Lymphocytes # (Auto) 1.6 x10^3/uL (1.0-4.8) Monocytes # (Auto) 0.6 x10^3/uL (0.0-1.1) Eosinophils # (Auto) 0.2 x10^3/uL (0.0-0.7) Basophils # (Auto) 0.1 x10^3/uL (0.0-0.2) Medications Current Medications Sodium Chloride 1,000 ml @ 100 mls/hr Q10H IV Last administered on 07/16/19at 03:08; Start 07/16/19 at 02:30; Stop 07/16/19 at 05:21; Status DC Ondansetron HCl (Zofran) 4 mg PRN Q4HRS PRN IVP NAUSEA/VOMITING 1ST CHOICE; Start 07/16/19 at 02:30; Stop 07/16/19 at 05:21; Status DC Fentanyl Citrate (Fentanyl 2ml Vial) 50 mcg PRN Q3HRS PRN IVP SEVERE PAIN 7-10 Last administered on 07/17/19at 07:57; Start 07/16/19 at 02:30 Piperacillin Sod/ Tazobactam Sod 3.375 gm/Sodium Chloride 50 ml @ 100 mls/hr 1X ONCE IV Last administered on 07/16/19at 04:35; Start 07/16/19 at 03:30; Stop 07/16/19 at 03:59; Status DC Ondansetron HCl (Zofran) 4 mg PRN Q6HRS PRN IV NAUSEA/VOMITING Last administered on 07/17/19at 03:14; Start 07/16/19 at 03:45; Stop 07/17/19 at 03:44; Status DC Fentanyl Citrate (Fentanyl 2ml Vial) 25 mcg PRN Q5MIN PRN IV MILD PAIN 1-3; Start 07/16/19 at 03:45; Stop 07/17/19 at 03:44; Status DC Fentanyl Citrate (Fentanyl 2ml Vial) 50 mcg PRN Q5MIN PRN IV MODERATE TO SEVERE PAIN; Start 07/16/19 at 03:45; Stop 07/17/19 at 03:44; Status DC Morphine Sulfate (Morphine Sulfate) 1 mg PRN Q10MIN PRN IV SEVERE PAIN 7-10; Start 07/16/19 at 03:45; Stop 07/17/19 at 03:44; Status DC Ringer's Solution 1,000 ml @ 30 mls/hr Q24H IV ; Start 07/16/19 at 03:33; Stop 07/16/19 at 15:32; Status DC Hydromorphone HCl (Dilaudid) 0.5 mg PRN Q10MIN PRN IV SEV PAIN, Second choice; Start 07/16/19 at 03:45; Stop 07/17/19 at 03:44; Status DC Prochlorperazine Edisylate (Compazine) 5 mg PACU PRN PRN IV NAUSEA, MRX1 Last administered on 07/16/19at 06:30; Start 07/16/19 at 03:45; Stop 07/17/19 at 03:44; Status DC Bupivacaine HCl/ Epinephrine Bitart (Sensorcain-Epi 0.5%-1:[id number] Mpf) 30 ml STK-MED ONCE .ROUTE Last administered on 07/16/19at 04:38; Start 07/16/19 at 03:50; Stop 07/16/19 at 03:50; Status DC Ondansetron HCl (Zofran) 4 mg STK-MED ONCE .ROUTE ; Start 07/16/19 at 03:52; Stop 07/16/19 at 03:53; Status DC Propofol 20 ml @ As Directed STK-MED ONCE IV ; Start 07/16/19 at 03:52; Stop 07/16/19 at 03:53; Status DC Lidocaine HCl (Lidocaine Pf 2% Vial) 5 ml STK-MED ONCE .ROUTE ; Start 07/16/19 at 03:52; Stop 07/16/19 at 03:53; Status DC Dexamethasone Sodium Phosphate (Decadron) 4 mg STK-MED ONCE .ROUTE ; Start 07/16/19 at 03:52; Stop 07/16/19 at 03:53; Status DC Sevoflurane (Ultane) 30 ml STK-MED ONCE IH ; Start 07/16/19 at 03:52; Stop 07/16/19 at 03:53; Status DC Succinylcholine Chloride (Anectine) 200 mg STK-MED ONCE .ROUTE ; Start 07/16/19 at 03:53; Stop 07/16/19 at 03:53; Status DC Glycopyrrolate (Robinul) 1 mg STK-MED ONCE .ROUTE ; Start 07/16/19 at 03:53; Stop 07/16/19 at 03:53; Status DC Neostigmine Mackay (Neostigmine Methylsulfate) 5 mg STK-MED ONCE .ROUTE ; Start 07/16/19 at 03:53; Stop 07/16/19 at 03:53; Status DC Rocuronium Mackay (Zemuron) 50 mg STK-MED ONCE .ROUTE ; Start 07/16/19 at 03:53; Stop 07/16/19 at 03:54; Status DC Fentanyl Citrate (Fentanyl 2ml Vial) 100 mcg STK-MED ONCE .ROUTE ; Start 07/16/19 at 03:54; Stop 07/16/19 at 03:54; Status DC Midazolam HCl (Versed) 2 mg STK-MED ONCE .ROUTE ; Start 07/16/19 at 04:19; Stop 07/16/19 at 04:19; Status DC Cefazolin Sodium (Ancef) 1 gm STK-MED ONCE IVP ; Start 07/16/19 at 04:25; Stop 07/16/19 at 04:25; Status DC Sevoflurane (Ultane) 60 ml STK-MED ONCE IH ; Start 07/16/19 at 04:47; Stop 06/19 at 04:48; Status DC Enoxaparin Sodium (Lovenox 40mg Syringe) 40 mg Q24H SQ Last administered on 07/16/19at 21:50; Start 07/16/19 at 21:00 Sodium Chloride (Normal Saline Flush) 3 ml QSHIFT PRN IV AFTER MEDS AND BLOOD DRAWS; Start 07/16/19 at 05:15 Potassium Chloride/Sodium Chloride 1,000 ml @ 100 mls/hr Q10H IV Last administered on 07/17/19at 02:51; Start 07/16/19 at 06:00 Oxycodone/ Acetaminophen (Percocet 5/325) 1 tab PRN Q4HRS PRN PO MILD PAIN, 1ST CHOICE; Start 07/16/19 at 05:15 Oxycodone/ Acetaminophen (Percocet 5/325) 2 tab PRN Q4HRS PRN PO MODERATE PAIN, SEVERE PAIN; Start 07/16/19 at 05:15 Naloxone HCl (Narcan) 0.4 mg PRN Q2MIN PRN IV SEE INSTRUCTIONS; Start 07/16/19 at 05:15 Sodium Chloride 1,000 ml @ 25 mls/hr Q24H IV ; Start 07/16/19 at 05:13; Stop 07/16/19 at 05:20; Status DC Hydromorphone HCl (Dilaudid) 1 mg PRN Q4HRS PRN IV SEVERE PAIN 7-10 Last administered on 07/17/19at 02:47; Start 07/16/19 at 05:15 Docusate Sodium (Colace) 100 mg BID PO Last administered on 07/17/19at 07:56; Start 07/16/19 at 09:00 Ondansetron HCl (Zofran) 4 mg PRN Q6HRS PRN IVP NAUESA, 1ST CHOICE Last administered on 07/17/19at 08:24; Start 07/16/19 at 05:15 Fentanyl Citrate (Fentanyl 2ml Vial) 100 mcg STK-MED ONCE .ROUTE ; Start 07/16/19 at 05:21; Stop 07/16/19 at 05:21; Status DC Morphine Sulfate (Morphine Sulfate) 2 mg STK-MED ONCE .ROUTE ; Start 07/16/19 at 05:51; Stop 07/16/19 at 05:51; Status DC Midazolam HCl (Versed) 2 mg STK-MED ONCE .ROUTE ; Start 07/16/19 at 06:10; Stop 07/16/19 at 06:10; Status DC Midazolam HCl (Versed) 1 mg PRN Q30MIN PRN IV ANXIETY Last administered on 07/16/19at 06:15; Start 07/16/19 at 06:15; Stop 07/16/19 at 18:15; Status DC Lorazepam (Ativan) 0.5 mg PRN Q6HRS PRN PO ANXIETY / AGITATION Last administered on 07/16/19at 12:17; Start 07/16/19 at 11:00; Stop 07/16/19 at 15:53; Status DC Citalopram Hydrobromide (CeleXA) 20 mg DAILY PO Last administered on 07/17/19at 07:56; Start 07/17/19 at 09:00 Clonazepam (KlonoPIN) 0.5 mg PRN Q6HRS PRN PO ANXIETY / AGITATION Last administered on 07/16/19at 17:41; Start 07/16/19 at 15:45 Vitals/I & O Vital Sign - Last 24 Hours 07/16/19 07/16/19 07/16/19 07/17/19 15:00 19:00 23:00 02:47 Temp 97.9 98.3 98.0 97.9 98.3 98.0 Pulse 95 94 81 Resp 18 18 18 B/P (MAP) 146/76 (99) 154/83 (106) 154/68 (96) Pulse Ox 94 93 94 O2 Delivery Room Air Room Air Room Air Room Air 07/17/19 07/17/19 07/17/19 07/17/19 03:00 07:41 07:57 08:00 Temp 98.0 98.0 98.0 98.0 Pulse 89 86 Resp 18 18 B/P (MAP) 127/73 (91) 141/67 (91) Pulse Ox 92 91 O2 Delivery Room Air Room Air Room Air Room Air 07/17/19 07/17/19 08:27 11:10 Temp 98.1 98.1 Pulse 67 Resp 18 B/P (MAP) 112/40 (64) Pulse Ox 94 O2 Delivery Room Air Room Air Intake and Output 07/16/19 07/16/19 07/17/19 15:00 23:00 07:00 Intake Total 480 ml 1000 ml Output Total 2100 ml Balance 480 ml -1100 ml REBEL CARRERA MD Jul 17, 2019 12:20
--- NOTE | 2019-07-17 13:08 | PDOC ---
SURGICAL PROGRESS NOTE Subjective vomiting no flatus Vital Signs Vital Signs Date Time Temp Pulse Resp B/P (MAP) Pulse Ox O2 Delivery O2 Flow Rate FiO2 07/17/19 11:10 98.1 67 18 112/40 (64) 94 Room Air 98.1 07/16/19 08:33 4.0 I&O Intake and Output 07/17/19 07:00 Intake Total 1480 ml Output Total 2100 ml Balance -620 ml Intake Oral 1480 ml Output Urine Total 2100 ml # Voids 3 General: Alert, Oriented X3, Cooperative Abdomen: Soft, Other (dressing dry, soft) Labs Laboratory Tests Test 07/16/19 03:00 07/16/19 03:50 Sodium Level 141 mmol/L (136-145) Potassium Level 3.9 mmol/L (3.5-5.1) Chloride Level 108 mmol/L (98-107) Carbon Dioxide Level 24 mmol/L (21-32) Anion Gap 9 (6-14) Blood Urea Nitrogen 14 mg/dL (7-20) Creatinine 0.8 mg/dL (0.6-1.0) Estimated GFR (Cockcroft-Gault) 73.2 BUN/Creatinine Ratio 18 (6-20) Glucose Level 115 mg/dL (70-99) Lactic Acid Level 0.8 mmol/L (0.4-2.0) Calcium Level 8.4 mg/dL (8.5-10.1) Total Bilirubin 0.3 mg/dL (0.2-1.0) Aspartate Amino Transf (AST/SGOT) 13 U/L (15-37) Alanine Aminotransferase (ALT/SGPT) 10 U/L (14-59) Alkaline Phosphatase 74 U/L (46-116) Total Protein 6.0 g/dL (6.4-8.2) Albumin 3.1 g/dL (3.4-5.0) Albumin/Globulin Ratio 1.1 (1.0-1.7) White Blood Count 8.1 x10^3/uL (4.0-11.0) Red Blood Count 4.53 x10^6/uL (3.50-5.40) Hemoglobin 12.9 g/dL (12.0-15.5) Hematocrit 39.6 % (36.0-47.0) Mean Corpuscular Volume 87 fL (79-100) Mean Corpuscular Hemoglobin 29 pg (25-35) Mean Corpuscular Hemoglobin Concent 33 g/dL (31-37) Red Cell Distribution Width 14.4 % (11.5-14.5) Platelet Count 273 x10^3/uL (140-400) Neutrophils (%) (Auto) 70 % (31-73) Lymphocytes (%) (Auto) 20 % (24-48) Monocytes (%) (Auto) 7 % (0-9) Eosinophils (%) (Auto) 3 % (0-3) Basophils (%) (Auto) 1 % (0-3) Neutrophils # (Auto) 5.6 x10^3/uL (1.8-7.7) Lymphocytes # (Auto) 1.6 x10^3/uL (1.0-4.8) Monocytes # (Auto) 0.6 x10^3/uL (0.0-1.1) Eosinophils # (Auto) 0.2 x10^3/uL (0.0-0.7) Basophils # (Auto) 0.1 x10^3/uL (0.0-0.2) Assessment/Plan [facility] NPO, await improved bowel function SKYLA SHARMA MUSIC PROMOTER Jul 17, 2019 13:08
--- NOTE | 2019-07-17 15:07 | PATHOLOGY ---
[facility] Accession Number: [id number] . 01 Material submitted: . hernia - HERNIA SAC . 01 Clinical history: . Incarcerated ventral hernia . 02 Diagnosis: Segment of focal mesothelial-lined fibromembranous and fibroadipose tissue, ventral hernia repair: - Hernia sac showing congestion and focal mild chronic inflammation. 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 02 Electronically signed: . Sergio Garcia MD, Pathologist NPI- [id number] . 01 Gross description: . The specimen is received in formalin, labeled "Last, Kyara, hernia sac" and consists of a segment of membranous pink-peter yellow lobulated tissue measuring 10.4 x 6.8 x 2.5 cm. Sectioning reveals no gross lesions and customer relations representative tissue is submitted in A1. (SDY; 07/16/2019) SYU/SYU 07/16/2019 1547 Local . 02 Pathologist provided ICD-10: K43.9 . 02 CPT . 652512 Specimen Comment: A courtesy copy of this report has been sent to [phone] Specimen Comment: [phone], Specimen Comment: Report sent to ,DR MCINTYRE / DR IBANEZ Specimen Comment: A duplicate report has been generated due to demographic updates. Performed at: 01 [facility] [address], [place] [id number] MD Law Li MD Phone: [phone] Performed at: 02 [facility] [address], [place] [id number] MD Sergio Garcia MD Phone: [phone]
[2019-07-17 15:24] VITALS: BP 162/74
[2019-07-17 19:00] VITALS: BP 159/82
[2019-07-17] MEDS: ENOXAPARIN 40 MG/0.4 ML SYRINGE. SQ SCH (20:41)
[2019-07-17 23:00] VITALS: BP 129/79
[2019-07-18] VITALS (7 sets, daily range): BP systolic 147–180; BP diastolic 69–92
[2019-07-18] MEDS: CITALOPRAM 20 MG TABLET. PO SCH (06:59)
[2019-07-18] MEDS: DOCUSATE SODIUM 100 MG CAPSULE. PO SCH ×2 (07:00→20:37)
[2019-07-18] MEDS: POTASSIUM CL 20MEQ-0.45% NACL 1,000 ML IV SCH ×2 (08:21→16:40)
--- NOTE | 2019-07-18 09:46 | PN ---
DATE: 07/18/2019 SUBJECTIVE: The patient is resting, slightly propped up in bed, in no apparent distress, awake and alert. On questioning her, she denied any further episodes of nausea or vomiting. She has mild tenderness in the right upper quadrant with right-sided ROSSANA drain. She passed flatus, but no bowel movement. PHYSICAL EXAMINATION: GENERAL: When I examined her, she looked well. No pallor, jaundice, cyanosis, or thyromegaly. No jugular venous distention. No limb edema. VITAL SIGNS: Her heart rate was 82, blood pressure 158/89, temperature was 98.0, respiratory rate was 18, and oxygen saturation was 92%. HEAD, EYES, EARS, NOSE, AND THROAT: Normocephalic and atraumatic. NECK: Supple. CARDIAC: Normal first and second heart sounds. No gallop, rub, or murmur. CHEST: Clear to auscultation. No crepitation or rhonchi. ABDOMEN: Distended, soft, and nontender. There is no guarding or rigidity. No organomegaly. All hernial orifices intact. Bowel sounds normal. NEUROLOGIC: She is grossly intact. LABORATORY DATA: Her intake was 1480 and output was 2100. She has no lab work done this morning. Her most recent lab work showed a BUN of 14 and creatinine 0.8. Her white cell count was 8100, hemoglobin 13, hematocrit 39, MCV 87, and platelet count 273,000. ASSESSMENT: Incarcerated ventral incisional hernia, status post primary repair. The patient has had no further episodes of nausea or vomiting. She did pass gas according to her; however, she has no bowel movement. Other medical problems include hypertension and anxiety. PLAN: To continue with pain management. Continue with IV fluid and await evaluation by the surgical team to advance her diet. NELA MCINTYRE MD DR: AIRAM/ursula JOB#: [id number] / [id number]
[2019-07-18 11:25] LABS: HEMATOCRIT 42.2 % (36.0-47.0); HEMOGLOBIN 13.8 g/dL (12.0-15.5); RED BLOOD COUNT 4.87 x10^6/uL (3.50-5.40); RED CELL DISTRIBUTION WIDTH 14.2 % (11.5-14.5); WHITE BLOOD COUNT 7.3 x10^3/uL (4.0-11.0)
[2019-07-18 11:53] LABS: ALBUMIN 3.4 g/dL (3.4-5.0); CALCIUM 9.1 mg/dL (8.5-10.1); CREATININE 0.9 mg/dL (0.6-1.0); GFR 63.7; TOTAL BILIRUBIN 0.7 mg/dL (0.2-1.0); TOTAL PROTEIN 6.9 g/dL (6.4-8.2)
--- NOTE | 2019-07-18 12:53 | PDOC ---
SURGICAL PROGRESS NOTE Subjective feels much better no further emesis + flatus Vital Signs Vital Signs Date Time Temp Pulse Resp B/P (MAP) Pulse Ox O2 Delivery O2 Flow Rate FiO2 07/18/19 11:00 98.2 80 18 161/92 (115) 94 Room Air 98.2 I&O Intake and Output 07/18/19 07:00 Intake Total 1200 ml Output Total 780 ml Balance 420 ml Intake Oral 400 ml IV Total 800 ml Output Urine Total 750 ml Drainage Total 30 ml # Voids 5 General: Alert, Cooperative Abdomen: Soft, Other (drain serosang, incision dressing dry) Labs Laboratory Tests Test 07/18/19 11:00 White Blood Count 7.3 x10^3/uL (4.0-11.0) Red Blood Count 4.87 x10^6/uL (3.50-5.40) Hemoglobin 13.8 g/dL (12.0-15.5) Hematocrit 42.2 % (36.0-47.0) Mean Corpuscular Volume 87 fL (79-100) Mean Corpuscular Hemoglobin 28 pg (25-35) Mean Corpuscular Hemoglobin Concent 33 g/dL (31-37) Red Cell Distribution Width 14.2 % (11.5-14.5) Platelet Count 304 x10^3/uL (140-400) Sodium Level 142 mmol/L (136-145) Potassium Level 4.0 mmol/L (3.5-5.1) Chloride Level 105 mmol/L (98-107) Carbon Dioxide Level 24 mmol/L (21-32) Anion Gap 13 (6-14) Blood Urea Nitrogen 10 mg/dL (7-20) Creatinine 0.9 mg/dL (0.6-1.0) Estimated GFR (Cockcroft-Gault) 63.7 BUN/Creatinine Ratio 11 (6-20) Glucose Level 80 mg/dL (70-99) Calcium Level 9.1 mg/dL (8.5-10.1) Total Bilirubin 0.7 mg/dL (0.2-1.0) Aspartate Amino Transf (AST/SGOT) 32 U/L (15-37) Alanine Aminotransferase (ALT/SGPT) 25 U/L (14-59) Alkaline Phosphatase 82 U/L (46-116) Total Protein 6.9 g/dL (6.4-8.2) Albumin 3.4 g/dL (3.4-5.0) Albumin/Globulin Ratio 1.0 (1.0-1.7) Laboratory Tests Test 07/18/19 11:00 White Blood Count 7.3 x10^3/uL (4.0-11.0) Red Blood Count 4.87 x10^6/uL (3.50-5.40) Hemoglobin 13.8 g/dL (12.0-15.5) Hematocrit 42.2 % (36.0-47.0) Mean Corpuscular Volume 87 fL (79-100) Mean Corpuscular Hemoglobin 28 pg (25-35) Mean Corpuscular Hemoglobin Concent 33 g/dL (31-37) Red Cell Distribution Width 14.2 % (11.5-14.5) Platelet Count 304 x10^3/uL (140-400) Sodium Level 142 mmol/L (136-145) Potassium Level 4.0 mmol/L (3.5-5.1) Chloride Level 105 mmol/L (98-107) Carbon Dioxide Level 24 mmol/L (21-32) Anion Gap 13 (6-14) Blood Urea Nitrogen 10 mg/dL (7-20) Creatinine 0.9 mg/dL (0.6-1.0) Estimated GFR (Cockcroft-Gault) 63.7 BUN/Creatinine Ratio 11 (6-20) Glucose Level 80 mg/dL (70-99) Calcium Level 9.1 mg/dL (8.5-10.1) Total Bilirubin 0.7 mg/dL (0.2-1.0) Aspartate Amino Transf (AST/SGOT) 32 U/L (15-37) Alanine Aminotransferase (ALT/SGPT) 25 U/L (14-59) Alkaline Phosphatase 82 U/L (46-116) Total Protein 6.9 g/dL (6.4-8.2) Albumin 3.4 g/dL (3.4-5.0) Albumin/Globulin Ratio 1.0 (1.0-1.7) Problem List VIH start SKYLA Stanley APRN Jul 18, 2019 12:53
[2019-07-18] MEDS: LISINOPRIL 20 MG TABLET PO SCH (16:38)
[2019-07-18] MEDS: ENOXAPARIN 40 MG/0.4 ML SYRINGE. SQ SCH (20:37)
[2019-07-19] MEDS: POTASSIUM CL 20MEQ-0.45% NACL 1,000 ML IV SCH ×2 (02:39→11:31)
[2019-07-19 03:00] VITALS: BP 174/87
[2019-07-19 07:03] VITALS: BP 101/68
[2019-07-19] MEDS: ONDANSETRON PF 4 MG/2 ML VIAL. IVP PRN (07:06)
[2019-07-19] MEDS: DOCUSATE SODIUM 100 MG CAPSULE. PO SCH ×2 (07:53→20:44)
[2019-07-19] MEDS: CITALOPRAM 20 MG TABLET. PO SCH (07:53)
[2019-07-19] MEDS: LISINOPRIL 20 MG TABLET PO SCH (07:54)
--- NOTE | 2019-07-19 09:54 | PN ---
DATE: 07/19/2019 SUBJECTIVE: The patient is resting, slightly propped up in bed, in no apparent distress. She is awake, alert, stated that she has some pain last night for which she took pain medication and since then she has had no abdominal pain. She has no nausea, no vomiting. She tolerated her diet well. PHYSICAL EXAMINATION: GENERAL: When I examined her this morning, she looked well and was clearly in no apparent respiratory distress. No pallor, jaundice, cyanosis or thyromegaly. No jugular venous distention. No limb edema. VITAL SIGNS: Her heart rate was 113, blood pressure was 101/68, temperature was 98, respiratory rate was 20, and oxygen saturation was 94%. The rest of clinical exam is stable. LABORATORY DATA: As of yesterday, her white cell count is 7300, hemoglobin 14, hematocrit 42, MCV 87 and platelet count 304,000. Her chemistry showed a BUN of 10, creatinine 0.9. ASSESSMENT: 1. Incarcerated ventral incisional hernia, status post primary repair. The patient has no further episodes of nausea and vomiting. She did pass gas, according to her; however, so far she has no bowel movement. 2. Other medical problems include hypertension, anxiety. PLAN: To continue with current plan of management. If the patient tolerates her advanced diet, she can be discharged home to follow with her primary care physician and surgical team as an outpatient. NELA MCINTYRE MD DR: AIRAM/ursula JOB#: [id number] / [id number]
[2019-07-19 11:10] VITALS: BP 175/87
--- NOTE | 2019-07-19 11:59 | NUR ---
Patient continues to have elevated blood pressure, notified Dr. Garcia, new order received.
[2019-07-19] MEDS: amLODIPine BESYLATE 10 MG TABLET PO SCH (12:09)
--- NOTE | 2019-07-19 13:04 | PDOC ---
SURGICAL PROGRESS NOTE Subjective diarrhea stool no emesis feels pretty well pain at drain site Vital Signs Vital Signs Date Time Temp Pulse Resp B/P (MAP) Pulse Ox O2 Delivery O2 Flow Rate FiO2 07/19/19 12:09 70 175/87 07/19/19 11:10 98.0 18 96 Room Air 98.0 07/19/19 07:03 4.0 I&O Intake and Output 07/19/19 07:00 Intake Total 750 ml Output Total 75 ml Balance 675 ml Intake Oral 750 ml Drainage Total 75 ml # Voids 3 General: Alert, Cooperative Abdomen: Soft, Other (drain serosang, incision c/d/i, no erythema ) Labs Laboratory Tests Test 07/18/19 11:00 White Blood Count 7.3 x10^3/uL (4.0-11.0) Red Blood Count 4.87 x10^6/uL (3.50-5.40) Hemoglobin 13.8 g/dL (12.0-15.5) Hematocrit 42.2 % (36.0-47.0) Mean Corpuscular Volume 87 fL (79-100) Mean Corpuscular Hemoglobin 28 pg (25-35) Mean Corpuscular Hemoglobin Concent 33 g/dL (31-37) Red Cell Distribution Width 14.2 % (11.5-14.5) Platelet Count 304 x10^3/uL (140-400) Sodium Level 142 mmol/L (136-145) Potassium Level 4.0 mmol/L (3.5-5.1) Chloride Level 105 mmol/L (98-107) Carbon Dioxide Level 24 mmol/L (21-32) Anion Gap 13 (6-14) Blood Urea Nitrogen 10 mg/dL (7-20) Creatinine 0.9 mg/dL (0.6-1.0) Estimated GFR (Cockcroft-Gault) 63.7 BUN/Creatinine Ratio 11 (6-20) Glucose Level 80 mg/dL (70-99) Calcium Level 9.1 mg/dL (8.5-10.1) Total Bilirubin 0.7 mg/dL (0.2-1.0) Aspartate Amino Transf (AST/SGOT) 32 U/L (15-37) Alanine Aminotransferase (ALT/SGPT) 25 U/L (14-59) Alkaline Phosphatase 82 U/L (46-116) Total Protein 6.9 g/dL (6.4-8.2) Albumin 3.4 g/dL (3.4-5.0) Albumin/Globulin Ratio 1.0 (1.0-1.7) Assessment/Plan s/p VIH advance diet possible home tomorrow SKYLA SHARMA APRN Jul 19, 2019 13:04
[2019-07-19 14:43] VITALS: BP 155/88
[2019-07-19 19:50] VITALS: BP 194/80
[2019-07-19] MEDS: ENOXAPARIN 40 MG/0.4 ML SYRINGE. SQ SCH (20:45)
[2019-07-19] MEDS ORDERED: hydrALAZINE 20 MG/ML VIAL. IVP PRN (21:30)
[2019-07-19 23:10] VITALS: BP 138/72
[2019-07-20] MEDS: POTASSIUM CL 20MEQ-0.45% NACL 1,000 ML IV SCH (00:24)
[2019-07-20 03:10] VITALS: BP 139/73
[2019-07-20 07:00] VITALS: BP 152/72
[2019-07-20] MEDS: amLODIPine BESYLATE 10 MG TABLET PO SCH (08:50)
[2019-07-20] MEDS: CITALOPRAM 20 MG TABLET. PO SCH (08:50)
[2019-07-20] MEDS: DOCUSATE SODIUM 100 MG CAPSULE. PO SCH (08:50)
[2019-07-20] MEDS: LISINOPRIL 20 MG TABLET PO SCH (08:51)
--- NOTE | 2019-07-20 09:04 | PN ---
DATE: 07/20/2019 SUBJECTIVE: The patient is resting, slightly propped up in bed, in no apparent distress. She is awake, alert, has no nausea, vomiting, no abdominal pain. She had a bowel movement yesterday scale. She is tolerating her full diet without any problem. OBJECTIVE: GENERAL: When I examined her this morning, she looked pale, no jaundice, cyanosis or thyromegaly. No jugular venous distention. No lower limb edema. VITAL SIGNS: Her heart rate was 77, blood pressure 152/72, temperature 98, respiratory rate was 18 and oxygen saturation was 93% on room air. The rest of clinical exam is stable. ASSESSMENT: 1. Incarcerated ventral incisional hernia, status post primary repair. The patient has no further episodes of nausea and vomiting. She has a bowel movement, tolerating her full liquid diet. 2. Hypertension, anxiety. PLAN: To advance diet as tolerated and she can be discharged home later. I will discontinue the IV fluid and we will get Physical and Occupational Therapy. NELA MCINTYRE MD DR: AIRAM/ursula JOB#: [id number] / [id number]
--- NOTE | 2019-07-20 09:21 | NUR ---
SW following. Discussed with RN, pt from home, had a bowel movement. RN advised no SW needs at this time. Possible discharge home with self care today. SW will continue to follow.
[2019-07-20 11:00] VITALS: BP 147/78
--- NOTE | 2019-07-20 13:07 | PDOC ---
SURGICAL PROGRESS NOTE Subjective no complaints tolerating diet pain managed feels well Vital Signs Vital Signs Date Time Temp Pulse Resp B/P (MAP) Pulse Ox O2 Delivery O2 Flow Rate FiO2 07/20/19 11:00 98.3 72 18 147/78 (101) 93 Room Air 98.3 07/19/19 07:03 4.0 I&O Intake and Output 07/20/19 07:00 Intake Total 835 ml Output Total 45 ml Balance 790 ml Intake Oral 835 ml Drainage Total 45 ml # Voids 6 General: Alert, Oriented X3, Cooperative Abdomen: Soft, Other (dressing dry, drain serosang) Assessment/Plan s/p VIH ok to dc home will have FU in clinic thus for drain 07/23/ at 130, [place] [facility] SKYLA SHARMA APRN Jul 20, 2019 13:07
--- NOTE | 2019-07-20 13:18 | NUR ---
Attempt made to call Dr. Garcia for possible d/c instructions. No answer, voicemail is full.
--- NOTE | 2019-07-20 13:58 | NUR ---
Contacted Dr. Garcia, notified him of surgery ok to d/c pt home today.
--- NOTE | 2019-07-20 16:15 | NUR ---
Pt. discharged to home with Rx, verbalized understanding of discharge instructions and [facility] drain home care.
== END 2019-07-20 16:16 | disposition home or self-care (01) | DRG 355 ==
LOC: 4 NORTH 02:13
PROVIDERS: ADMIT Internal Medicine; ATTEND Internal Medicine
PROC: 0WQF0ZZ Repair Abdominal Wall, Open Approach (ICD-10-PCS; principal; 2019-07-16 04:45)
DX: K43.0 Incisional hernia with obstruction, without gangrene (principal); I10 Essential (primary) hypertension; E66.9 Obesity, unspecified; F41.0 Panic disorder [episodic paroxysmal anxiety]; F41.1 Generalized anxiety disorder; Z79.899 Other long term (current) drug therapy; Z90.710 Acquired absence of both cervix and uterus; Z88.8 Allergy status to other drugs, medicaments and biological substances; Z91.010 Allergy to peanuts; Z68.36 Body mass index [BMI] 36.0-36.9, adult
CPT/HCPCS: 36415; 80053; 83605; 85025; 85027; 88302; A7015; J0330; J0360; J0690; J0780; J1100; J1170; J1650; J2001; J2250; J2405; J2543; J2704; J2710; J3010; J3490; J7030; G0378